=== PATIENT | female | born 1990 | race Two or more races ===

== ENCOUNTER 2024-01-24 11:55 | Inpatient (IN) | payer MEDICAID ==
[~2024-01-24] VITALS: Ht 149.9 cm; Wt 63.0 kg
[2024-01-24 12:57] LABS: Fern Testing Positive
[2024-01-24] MEDS ORDERED: LIDOCAINE 2%HCL (LOCAL ANESTH.) INJ 20ML MDV IJ PRN (13:45)
[2024-01-24] MEDS ORDERED: BUTORPHANOL TARTRATE 2 MG/1 ML VIAL IV PRN ×2 (13:45)
[2024-01-24] MEDS: LACTATED RINGER'S 1,000 ML IV SCH (14:22)
[2024-01-24 14:52] LABS: Basophils # (auto) 0 10 ^3/uL (0-0.2); Basophils % (auto) 0.2 % (0.0-2.0); Eosinophils # (auto) 0 10 ^3/uL (0-0.8); Eosinophils % (auto) 0.2 % (0.0-7.0); Hematocrit 35.5 % (36.0-46.0); Hemoglobin 12.5 g/dL (12.2-16.2); Lymphocytes % (auto) 19.9 % (10.0-50.0); Mean Corpuscular Hemoglobin 31.9 pg (28.0-32.0); Mean Corpuscular Hgb Conc. 35.1 g/dL (32.0-36.0); Mean Corpuscular Volume 90.9 fL (80.0-100.0); Monocytes # (auto) 0.4 10 ^3/uL (0-1.3); Monocytes % (auto) 4.1 % (0.0-12.0); Neutrophils # (auto) 7.7 10 ^3/uL (1.6-8.6); Neutrophils % (auto) 75.6 % (37.0-80.0); Nucleated Red Blood Cells % 0.1 %; Red Blood Cells 3.91 10^6/uL (4.0-5.20); Red Cell Distribution Width 14.5 % (11.8-14.3); White Blood Cell 10.1 10^3/uL (4.4-10.8)
[2024-01-24 15:04] LABS: Amphetamine Screen, Urine Neg (NEGATIVE); Benzodiazephine Screen, Urine Neg (NEGATIVE)
[2024-01-24 15:05] LABS: Barbiturate Scree,Urine Neg (NEGATIVE); Cocaine Screen, Urine Neg (NEGATIVE); Opiate Scree,Urine Neg (NEGATIVE); Phencyclidine Screen, Urine Neg (NEGATIVE); Urine Amorphous Crystal FEW /hpf (None Seen); Urine Bacteria MANY /hpf (None Seen); Urine Blood 3+ /uL (Negative); Urine Clarity Ex.Turbid (Clear); Urine Color Colorless (Yellow); Urine Protein, UAD 2+ (Negative); Urine Urobilinogen Normal (Negative); Urine WBC 47 /hpf (0 - 5); Urine WBC Clumps PRESENT /hpf (None Seen); Urine pH 7.5 (5.0-9.0)
[2024-01-24 15:06] LABS: Cannabinoid Screen, Urine Neg (NEGATIVE)
[2024-01-24 15:08] LABS: Alanine Aminotransferase 12 U/L (7-40); Albumin 3.8 g/dL (3.2-4.8); Alkaline Phosphatase 160 U/L (46-116); Anion Gap 9 (5-15); Aspartate Aminotransferase 13 U/L (13-40); BUN/Creatinine Ratio 10.2 (10.0-20.0); Bilirubin, Total 0.4 mg/dL (0.2-1.0); Blood Urea Nitrogen 5 mg/dL (9-23); Calcium 9.5 mg/dL (8.5-10.1); Carbon Dioxide 20 mmol/L (20-30); Chloride 108 mmol/L (98-107); Glucose 95 mg/dL (74-106); Potassium 3.6 mmol/L (3.5-5.1); Sodium 137 mmol/L (136-145)
[2024-01-24 15:09] LABS: Total Protein 6.3 g/dL (5.7-8.2)
[2024-01-24 15:15] LABS: INR 0.94 (0.9-1.15); Partial Thromboplastin Time 27.7 SEC (24.5-34.5)
[2024-01-24] MEDS: WITCH HAZEL-GLYCERIN PAD TOP PRN (15:21)
[2024-01-24] MEDS: PENICILLIN G POT 5MIL/D5 50ML 50 ML IV ONE (15:21)
[2024-01-24] MEDS: PHISODERM TOP SOLN 240ML BTL TOP PRN (15:21)
[2024-01-24] MEDS: DERMOPLAST 60ML BOTTLE TOP PRN (15:21)
[2024-01-24] MEDS ORDERED: ePHEDrine SULFATE 50 MG/ML AMP IV ONE (15:45)
[2024-01-24] MEDS ORDERED: NALOXONE HCL 0.4 MG/ML VIAL IV ONE (15:45)
[2024-01-24] MEDS: LACTATED RINGER'S 1,000 ML IV ONE (15:45)
[2024-01-24] MEDS: FAMOTIDINE (10MG/ML) 2ML VL IV ONE (17:16)
[2024-01-24] MEDS: fentaNYL CITRATE 100 MCG/2 ML VL IV ONE (17:17)
[2024-01-24] MEDS: ROPIVACAINE HCL 200 ML ONE (17:18)
[2024-01-24] MEDS ORDERED: PENICILLIN G POTASSIUM 2,500,000 UNITS in D5W 5% 50 ML IV SCH (17:45)
[2024-01-24] MEDS: PENICILLIN G POTASSIUM 2,500,000 UNITS in D5W 5% 50 ML IV SCH (19:01)
[2024-01-24] MEDS: miSOPROStol 100 mcg TAB ONE (19:27)
[2024-01-24] MEDS: LACT. RINGERS/OXYTOCIN 20UNITS 500 ML IV ONE ×2 (20:23→20:24)
[2024-01-24] MEDS: METHYLERGONOVINE MALEATE 0.2 MG/ML AMP IM ONE ×2 (20:24→20:26)
[2024-01-24] MEDS: ceFAZolin 2 GM/D5W50ml 50 ML IV ONE (20:29)
[2024-01-24] MEDS ORDERED: ONDANSETRON HCL 4 MG/2 ML VIAL IV PRN (21:15)
[2024-01-24] MEDS: IBUPROFEN 600 MG TAB PO PRN (22:16)
[2024-01-24 22:50] VITALS: BP 113/64; PULSE 73; RESP 16; TEMP 98.3; O2SAT 98
[2024-01-25] MEDS: DOCUSATE SOD 100 MG CAP PO SCH (00:08)
[2024-01-25] MEDS: ACETAMINOPHEN 325 MG TAB PO PRN (00:09)
[2024-01-25 03:11] VITALS: BP_SYST 89; BP_SYST 94; BP_DIAS 50; BP_DIAS 53; PULSE 67; RESP 16; TEMP 97.9; O2SAT 96
[2024-01-25] MEDS: ceFAZolin 1GM/50ML 50 ML IV ONE ×2 (04:29→12:28)
[2024-01-25 07:07] LABS: RPR Non Reactive (Non Reactive)
[2024-01-25 07:10] VITALS: BP 98/51; PULSE 74; RESP 16; TEMP 98; O2SAT 98
[2024-01-25] MEDS ORDERED: IBU600T PO (07:18)
[2024-01-25 09:16] LABS: Basophils # (auto) 0 10 ^3/uL (0-0.2); Basophils % (auto) 0.3 % (0.0-2.0); Eosinophils # (auto) 0 10 ^3/uL (0-0.8); Eosinophils % (auto) 0.3 % (0.0-7.0); Hematocrit 24.6 % (36.0-46.0); Hemoglobin 8.6 g/dL (12.2-16.2); Lymphocytes # (auto) 2.5 10 ^3/uL (0.4-5.4); Lymphocytes % (auto) 20.8 % (10.0-50.0); Mean Corpuscular Hemoglobin 32.5 pg (28.0-32.0); Mean Corpuscular Volume 92.8 fL (80.0-100.0); Monocytes # (auto) 0.5 10 ^3/uL (0-1.3); Monocytes % (auto) 4.6 % (0.0-12.0); Neutrophils # (auto) 8.9 10 ^3/uL (1.6-8.6); Red Blood Cells 2.66 10^6/uL (4.0-5.20); Red Cell Distribution Width 14.4 % (11.8-14.3)
[2024-01-25 11:25] VITALS: BP 96/52; PULSE 89; RESP 18; TEMP 97.7; O2SAT 98
[2024-01-25 15:04] VITALS: BP 97/56; PULSE 80; RESP 18; TEMP 98.4; O2SAT 98
[2024-01-25 19:00] VITALS: BP 106/52; PULSE 80; RESP 16; TEMP 98.3; O2SAT 99
[2024-01-25 21:04] VITALS: BP 106/61; PULSE 86; RESP 16; TEMP 98.5; O2SAT 97
== END 2024-01-25 21:04 | disposition home or self-care (01) | DRG 560 ==
LOC: LDRP 11:55 → UNDOADMOB 11:55 → OBSVTOIN 13:15 → INTOOBSV 13:15 → OBSVTOIN 13:37 → LDRP 13:37 → UNDODISIN 01-25 21:04
PROVIDERS: ADMIT Obstetrics & Gynecology; ATTEND Obstetrics & Gynecology
PROC: 10D07Z6 Extraction of Products of Conception, Vacuum, Via Natural or Artificial Opening (ICD-10-PCS; principal; 2024-01-24)
PROC: 0KQM0ZZ Repair Perineum Muscle, Open Approach (ICD-10-PCS; 2024-01-24)
PROC: 0W8NXZZ Division of Female Perineum, External Approach (ICD-10-PCS; 2024-01-24)
PROC: 3E0R3BZ Introduction of Anesthetic Agent into Spinal Canal, Percutaneous Approach (ICD-10-PCS; 2024-01-24)
PROC: 00HU33Z Insertion of Infusion Device into Spinal Canal, Percutaneous Approach (ICD-10-PCS; 2024-01-24)
DX: O99.824 Streptococcus B carrier state complicating childbirth (principal); Z37.0 Single live birth; R71.0 Precipitous drop in hematocrit; O70.1 Second degree perineal laceration during delivery; Z3A.39 39 weeks gestation of pregnancy
CPT/HCPCS: 36415; 59025; 59409; 62282; 80053; 80307; 81001; 81002; 84112; 85025; 85610; 85730; 86592; 86803; 86850; 86900; 86901; 94760; 96360; 96361; 96365; 96366; 96372; G0378; J2540; J2590; J3490; J7060